=== PATIENT | female | born 1950 | race African-American/Black ===

== ENCOUNTER 2017-07-13 13:43 | Inpatient (IN) | payer MEDICARE, OTHER ==
[~2017-07-13] VITALS: Ht 170.2 cm; Wt 160.1 kg
--- NOTE | 2017-07-13 15:30 | History and Physical ---
History of Present Illness General Date patient seen: Jul 13, 2017 Time patient seen: 15:30 Reason for Hospitalization: sacral decubitus ulcer Present Illness HPI 66 y/o female with pmh of DM2 (on insulin) c/b neuropathy, HTN, GERD, HLD who presents with worsening sacral decubitus ulcer. Pt states sacral decubitus ulcer has been presents for the past few months. Reports increased pain/swelling /warmth in area. Denies discharge/drainage. Denies f/c, n/v, d/c, chest pain, SOB. Pt is incontinent of urine and wears a diaper. Pt states she is non- ambulatory for the past few years. She gets around in wheelchair sometimes. Allergies: Coded Allergies: No Known Allergies (Unverified , 07/13/17) Medication History Scheduled Ascorbic Acid* (Vitamin C*), 500 MG ORAL DAILY, (Reported) Aspirin* (Aspirin*), 81 MG ORAL DAILY, (Reported) Atorvastatin Calcium* (Lipitor*), 10 MG ORAL BEDTIME, (Reported) Baclofen* (Baclofen*), 10 MG ORAL THREE TIMES A DAY, (Reported) Benazepril Hcl* (Benazepril Hcl*), 5 MG ORAL DAILY, (Reported) Cranberry Extract (Cranberry Concentrate), 450 MG PO DAILY, (Reported) Docusate Sodium* (Docusate Sodium*), 100 MG ORAL TWICE A DAY, (Reported) Furosemide* (Lasix*), 40 MG ORAL DAILY, (Reported) Gabapentin* (Gabapentin*), 600 MG ORAL THREE TIMES A DAY, (Reported) Glipizide* (Glipizide*), 10 MG ORAL BIDAC, (Reported) Melatonin (Melatonin), 1 MG PO QHS, (Reported) Melatonin (Melatonin), 5 MG PO QHS, (Reported) Metformin Hcl* (Metformin Hcl*), 1,000 MG ORAL BID, (Reported) Metoprolol Tartrate* (Metoprolol Tartrate*), 25 MG ORAL DAILY, (Reported) Nph, Human Insulin Isophane (Humulin N), 15 UNITS SUBQ QHS, (Reported) Omeprazole (Omeprazole), 40 MG ORAL DAILY, (Reported) Sennosides (Senna), 17.2 MG PO QHS, (Reported) Scheduled PRN Hydrocodone Bit/Acetaminophen 7.5-325* ([place] 7.5-325*), 1 TAB ORAL Q8HR PRN for For Pain, (Reported) Ibuprofen* (Motrin*), 600 MG ORAL Q6H PRN for For Pain, (Reported) Patient History History Provided By: Patient, Medical Record, PMD Healthcare decision maker N Resuscitation status Advanced Directive on File Past Medical/Surgical History Past Medical/Surgical History: (1) DM2 (diabetes mellitus, type 2) (2) HTN (hypertension) (3) HLD (hyperlipidemia) (4) Diabetic neuropathy (5) GERD (gastroesophageal reflux disease) Family History Family History: Patient reports no known family medical history. Social History Social History: (1) lives at [facility] Review of Systems Constitutional: Reports: weakness Eye: Reports: no symptoms ENT: Reports: no symptoms Respiratory: Reports: no symptoms Cardiovascular: Reports: no symptoms Gastrointestinal: Reports: no symptoms Genitourinary: Reports: incontinence Musculoskeletal: Reports: no symptoms Skin: Reports: lesions Psychiatric: Reports: no symptoms Neurological: Reports: no symptoms Endocrine: Reports: no symptoms Hematologic/Lymphatic: Reports: no symptoms All Other Systems: negative except mentioned in HPI Physical Exam Physical Exam Narrative General: alert, cooperative, no distress, appears stated age Head: normocephalic, without obvious abnormality, atraumatic Eyes: conjunctivae/corneas clear. PERRL, EOM's intact Throat: lips, mucosa, and tongue normal. MMM Neck: supple, symmetrical, trachea midline, and no JVD Lungs: clear to auscultation bilaterally Heart: regular rate and rhythm, S1, S2 normal, no murmur, click, rub or gallop Abdomen: soft, non-tender, non-distended, bowel sounds normal; no masses or organomegaly Extremities: extremities normal, atraumatic, no cyanosis or edema Pulses: 2+ and symmetric Skin: skin color, texture, turgor normal; +sacral decubitus ulcer, no active drainage noted Neurologic: grossly normal, no focal deficits Assessment/Plan Problem List: (1) Sacral decubitus ulcer ICD Codes: L89.159 - Pressure ulcer of sacral region, unspecified stage SNOMED: 779817922 (2) DM2 (diabetes mellitus, type 2) ICD Codes: E11.9 - Type 2 diabetes mellitus without complications SNOMED: 67908380 Qualifiers: (3) Diabetic neuropathy ICD Codes: E11.40 - Type 2 diabetes mellitus with diabetic neuropathy, unspecified SNOMED: 04396441, 579847231, 389082065 (4) HTN (hypertension) ICD Codes: I10 - Essential (primary) hypertension SNOMED: 06958782 (5) HLD (hyperlipidemia) ICD Codes: E78.5 - Hyperlipidemia, unspecified SNOMED: 44021815 (6) GERD (gastroesophageal reflux disease) ICD Codes: K21.9 - Gastro-esophageal reflux disease without esophagitis SNOMED: 103225586 Status: stable Assessment/Plan Admit inpt Wound care consulted Will consult ID to determine if abx needed Cont local wound care Consider further imaging to sacral area Cont home meds: MTF, MTP, benazapril, PPI, ASA BRIAN PT/OT Pain mgmt, bowel regimen Supportive care Torch Brazer consult Diabetic diet DVT Prophylaxis: SCD, HSQ Code Status: Full Hospital Classification Declaration: Based on this initial evaluation, and depending on the patient's clinical course, I anticipate that this patient will require hospitalization for 2-3 days for sacral decub ulcer and close respiratory/hemodynamic monitoring. Disposition: Once the patient is stable to leave the hospital, I anticipate the patient will likely be discharged to the following environment: home with HH vs SNF I spent 70 minutes on this patient's case, and 38 minutes were dedicated to counseling and/or care coordination. Discussed with patient/family, nursing staff, SW/CM regarding clinical status, treatment course, and disposition planning. Time of note may not reflect time of encounter. Claudy Tristan M.D. Jul 13, 2017 15:30
[2017-07-13 16:11] VITALS: BP 120/65
[2017-07-13] MEDS ORDERED: Miralax 17gm pkt ORAL PRN (16:30)
[2017-07-13 16:42] LABS: BASOPHILS % (AUTO) 1.4 % (0.0-2.0); EOSINOPHILS % (AUTO) 3.2 % (0.0-3.0); LYMPHOCYTES % (AUTO) 27.9 % (20.0-45.0); MEAN CORPUSCULAR HEMOGLOBIN 28.9 PG (27.0-31.0); MEAN CORPUSCULAR HGB CONC 31.7 G/DL (32.0-36.0); MEAN CORPUSCULAR VOLUME 91 FL (80-99); MEAN PLATELET VOLUME 6.9 FL (6.5-10.1); MONOCYTES % (AUTO) 7.4 % (1.0-10.0); NEUTROPHILS % (AUTO) 60.1 % (45.0-75.0); PLATELET COUNT 367 K/UL (150-450); RED BLOOD COUNT 4.67 M/UL (4.20-5.40); RED CELL DISTRIBUTION WIDTH 13.8 % (11.6-14.8); WHITE BLOOD COUNT 7.9 K/UL (4.8-10.8)
[2017-07-13] MEDS ORDERED: Norco 5mg/325mg tab ORAL PRN (16:45)
[2017-07-13 17:10] LABS: ALANINE AMINOTRANSFERASE 16 U/L (12-78); ALBUMIN/GLOBULIN RATIO 0.5 (1.0-2.7); ANION GAP 7 mmol/L (5-15); ASPARTATE AMINO TRANSFERASE 10 U/L (15-37); CALCIUM 9.2 MG/DL (8.5-10.1); CARBON DIOXIDE 31 MMOL/L (21-32); CHLORIDE 104 MMOL/L (98-107); CREATININE 1.1 MG/DL (0.55-1.30); GLOMERULAR FILTRATION RATE > 60 mL/min (>60); MAGNESIUM 1.7 MG/DL (1.8-2.4); POTASSIUM 3.8 MMOL/L (3.5-5.1); SODIUM 142 MMOL/L (136-145); THYROID STIMULATING HORMONE 2.232 uiU/mL (0.358-3.740); TOTAL PROTEIN 8.5 G/DL (6.4-8.2)
[2017-07-13] MEDS: metFORMIN 500mg tab ORAL SCH (17:57)
[2017-07-13] MEDS: Norco 10mg/325mg tab ORAL PRN ×2 (17:57→23:03)
[2017-07-13] MEDS: Docusate 100mg cap ORAL SCH (18:00)
[2017-07-13 18:03] LABS: APPEARANCE,URINE TURBID; KETONES,URINE NEGATIVE (NEGATIVE); LEUKOCYTE ESTERASE ,URINE 1+ (NEGATIVE); NITRITE,URINE POSITIVE (NEGATIVE); PH,URINE 6 (4.5-8.0); PROTEIN,URINE NEGATIVE (NEGATIVE); UROBILINOGEN,URINE 1 MG/DL (0.0-1.0)
[2017-07-13 18:19] LABS: BACTERIA,URINE MANY /HPF; SQUAMOUS EPITHELIAL CELL,UR FEW /LPF (NONE/OCC); WBC,URINE 0-2 /HPF (0 - 2)
--- NOTE | 2017-07-13 18:23 | Infectious Diseases Prog Note ---
Assessment/Plan Assessment/Plan Full consult dictated: A) 1) sacral wound infection 2) morbid obesity, hyperlipidemia, neuropathy, dm, htn, schizoaffective dx, insomnia, major depression, gerd 3) allergies - negative 4) sh-negative, fh-nc, mar noted, notes and records noted 5) d/w RN P) 1) vancomycin and zosyn 2) check wound culture 3) check labs 4) wound care per protocol 5) orders entered and noted 6) thank you Subjective Allergies: Coded Allergies: No Known Allergies (Unverified , 07/13/17) Objective Vital Signs Last 24 Hour Vital Signs Date Time Temp Pulse Resp B/P (MAP) Pulse Ox O2 Delivery O2 Flow Rate FiO2 07/13/17 16:11 98.0 69 20 120/65 94 Room Air Height (Feet): 5 Height (Inches): 7.00 Weight (Pounds): 353 Laboratory Tests Test 07/13/17 16:00 07/13/17 16:20 Urine Color Yellow Urine Appearance Turbid Urine pH 6 (4.5-8.0) Urine Specific [place] 1.015 (1.005-1.035) Urine Protein Negative (NEGATIVE) Urine Glucose (UA) Negative (NEGATIVE) Urine Ketones Negative (NEGATIVE) Urine Occult Blood 2+ (NEGATIVE) H Urine Nitrite Positive (NEGATIVE) H Urine Bilirubin Negative (NEGATIVE) Urine Urobilinogen 1 MG/DL (0.0-1.0) H Urine Leukocyte Esterase 1+ (NEGATIVE) H Urine RBC Pending Urine WBC Pending Urine Squamous Epithelial Cells Pending Urine Bacteria Pending White Blood Count 7.9 K/UL (4.8-10.8) Red Blood Count 4.67 M/UL (4.20-5.40) Hemoglobin 13.5 G/DL (12.0-16.0) Hematocrit 42.5 % (37.0-47.0) Mean Corpuscular Volume 91 FL (80-99) Mean Corpuscular Hemoglobin 28.9 PG (27.0-31.0) Mean Corpuscular Hemoglobin Concent 31.7 G/DL (32.0-36.0) L Red Cell Distribution Width 13.8 % (11.6-14.8) Platelet Count 367 K/UL (150-450) Mean Platelet Volume 6.9 FL (6.5-10.1) Neutrophils (%) (Auto) 60.1 % (45.0-75.0) Lymphocytes (%) (Auto) 27.9 % (20.0-45.0) Monocytes (%) (Auto) 7.4 % (1.0-10.0) Eosinophils (%) (Auto) 3.2 % (0.0-3.0) H Basophils (%) (Auto) 1.4 % (0.0-2.0) Sodium Level 142 MMOL/L (136-145) Potassium Level 3.8 MMOL/L (3.5-5.1) Chloride Level 104 MMOL/L (98-107) Carbon Dioxide Level 31 MMOL/L (21-32) Anion Gap 7 mmol/L (5-15) Blood Urea Nitrogen 12 mg/dL (7-18) Creatinine 1.1 MG/DL (0.55-1.30) Estimat Glomerular Filtration Rate > 60 mL/min (>60) Glucose Level 105 MG/DL (74-106) Hemoglobin A1c 6.8 % (4.3-6.0) H Calcium Level 9.2 MG/DL (8.5-10.1) Magnesium Level 1.7 MG/DL (1.8-2.4) L Total Bilirubin 0.2 MG/DL (0.2-1.0) Aspartate Amino Transf (AST/SGOT) 10 U/L (15-37) L Alanine Aminotransferase (ALT/SGPT) 16 U/L (12-78) Alkaline Phosphatase 98 U/L (46-116) Pro-B-Type Natriuretic Peptide 67 pg/mL (0-125) Total Protein 8.5 G/DL (6.4-8.2) H Albumin 3.0 G/DL (3.4-5.0) L Globulin 5.5 g/dL Albumin/Globulin Ratio 0.5 (1.0-2.7) L Thyroid Stimulating Hormone (TSH) 2.232 uiU/mL (0.358-3.740) Current Medications Medications (Trade) Dose Ordered Sig/Gregory Route PRN Reason Start Time Stop Time Status Last Admin Dose Admin Acetaminophen (Tylenol) 650 mg Q4H PRN ORAL Mild Pain/Temp > 100.5 07/13/17 16:30 08/12/17 16:29 Acetaminophen/ Hydrocodone Bitart ([place] 10/325) 1 ea Q4H PRN ORAL For severe Pain 07/13/17 16:45 07/20/17 16:44 07/13/17 17:57 Acetaminophen/ Hydrocodone Bitart (Sims 5/325) 1 tab Q4H PRN ORAL Moderate Pain (Pain Scale 4-6) 07/13/17 16:45 07/20/17 16:44 Aspirin (Ecotrin) 81 mg DAILY ORAL 07/14/17 09:00 08/13/17 08:59 Atorvastatin Calcium (Lipitor) 10 mg BEDTIME ORAL 07/13/17 21:00 08/12/17 20:59 Baclofen (Lioresal) 10 mg TIDPRN PRN ORAL muscle spasms 07/13/17 17:00 08/12/17 16:59 Benazepril HCl (Lotensin) 5 mg DAILY ORAL 07/14/17 09:00 08/13/17 08:59 Dextrose (Dextrose 50%) STAT PRN IV Hypoglycemia 07/13/17 15:45 08/12/17 15:44 Docusate Sodium (Colace) 100 mg TWICE A DAY ORAL 07/13/17 18:00 08/12/17 17:59 Gabapentin (Neurontin) 600 mg THREE TIMES A DAY ORAL 07/13/17 18:00 08/12/17 17:59 07/13/17 17:56 Heparin Sodium (Porcine) (Heparin 5000 units/ml) 5,000 units EVERY 12 HOURS SUBQ 07/13/17 21:00 08/12/17 20:59 Insulin Aspart (NovoLOG) BEFORE MEALS AND HS SUBQ 07/13/17 21:00 08/12/17 20:59 Metformin HCl (Glucophage) 1,000 mg BID@0630,1830 ORAL 07/13/17 18:30 08/12/17 18:29 07/13/17 17:57 Metoprolol Tartrate (Lopressor) 12.5 mg Q12HR ORAL 07/13/17 21:00 08/12/17 20:59 Pantoprazole (Protonix) 40 mg DAILY ORAL 07/14/17 09:00 08/13/17 08:59 Piperacillin Sod/ Tazobactam Sod 3.375 gm/Dextrose 100 ml @ 25 mls/hr EVERY 8 HOURS IVPB 07/13/17 22:00 07/18/17 21:59 UNV Polyethylene Glycol (Miralax) 17 gm DAILYPRN PRN ORAL Constipation 07/13/17 16:30 08/12/17 16:29 Vancomycin HCl (Vanco rx to dose) 1 ea DAILY PRN MISC Per rx protocol 07/13/17 18:15 08/12/17 18:14 UNV Zolpidem Tartrate (Ambien) 5 mg HSPRN PRN ORAL Insomnia 07/13/17 16:45 07/20/17 16:44 FELIX COLVIN Jul 13, 2017 18:23
[2017-07-13] MEDS ORDERED: Sennosides 8.6mg ORAL PRN (18:45)
[2017-07-13] MEDS ORDERED: HUMULIN N100 UNIT/1 SUBQ (18:59)
[2017-07-13] MEDS ORDERED: SENNA8.6 M2 PO (18:59)
[2017-07-13] MEDS ORDERED: METFORMIN HCL1000 M1 ORAL (18:59)
[2017-07-13] MEDS ORDERED: GLIPIZIDE5 MG ORAL (18:59)
[2017-07-13] MEDS ORDERED: OMEPRAZOLE40 M1 ORAL (18:59)
[2017-07-13] MEDS ORDERED: MELATONIN5 M6 PO (18:59)
[2017-07-13] MEDS ORDERED: CRANBERRY CONC500 MG PO (18:59)
[2017-07-13] MEDS ORDERED: MELATONIN1 M2 PO (18:59)
[2017-07-13] MEDS ORDERED: ASPIRIN81 MG ORAL (18:59)
[2017-07-13] MEDS ORDERED: METOPROLOL TART25 MG ORAL (18:59)
[2017-07-13] MEDS ORDERED: BACLOFEN10 MG ORAL (18:59)
[2017-07-13] MEDS ORDERED: IBUPROFEN600 MG ORAL (18:59)
[2017-07-13] MEDS ORDERED: VITAMIN C500 M1 ORAL (18:59)
[2017-07-13] MEDS ORDERED: DOCUSATE SODIU100 MG ORAL (18:59)
[2017-07-13] MEDS ORDERED: GABAPENTIN600 MG ORAL (18:59)
[2017-07-13] MEDS ORDERED: ATORVASTATIN CA10 MG ORAL (18:59)
[2017-07-13] MEDS ORDERED: BENAZEPRIL HCL10 MG ORAL (18:59)
[2017-07-13] MEDS ORDERED: NORCO 7.5-3251 EACH ORAL (18:59)
[2017-07-13] MEDS ORDERED: FUROSEMIDE40 MG ORAL (18:59)
[2017-07-13 20:00] VITALS: BP 115/61
[2017-07-13] MEDS: Piperacillin/Tazobactam 3.375 GM in D5W 55 ML IVPB SCH (20:09)
[2017-07-13] MEDS ORDERED: Furosemide 40mg tab ORAL SCH (21:00)
[2017-07-13] MEDS: Metoprolol Tartrate 12.5mg TAB ORAL SCH (21:10)
[2017-07-13] MEDS: Heparin 5000 units/ml inj SUBQ SCH (21:11)
[2017-07-13] MEDS: NovoLOG Insulin Flexpen SUBQ SCH (21:12)
[2017-07-14] VITALS (7 sets, daily range): BP systolic 112–130; BP diastolic 50–69
[2017-07-14] MEDS: Zolpidem 5mg tab ORAL PRN ×2 (00:24→20:34)
[2017-07-14] MEDS: Vancomycin 1250mg/D5W 250ml IVPB SCH ×3 (00:25→20:42)
--- NOTE | 2017-07-14 03:45 | Consultation ---
DATE OF CONSULTATION: 07/13/2017 INFECTIOUS DISEASES CONSULTATION REFERRING PHYSICIAN: Hayden Tierney M.D. I was asked by Dr. Loco to see this patient. REASON FOR CONSULTATION: Sacral wound infection. The patient's chief complaint coming into the hospital is sacral wound and ulcer infection. HISTORY OF PRESENT ILLNESS: This is a very pleasant 66-year-old female, who has history of morbid obesity and generalized weakness. The patient presents to [facility] with worsening sacral wound and likely has sacral wound infection. An Infectious Diseases consultation is requested. The patient is started on vancomycin and Zosyn. Wound cultures have been ordered. Case was communicated with Dr. Loco, who is associated with Dr. Tierney. Laboratories were noted. MAR was noted. Orders were noted. Notes were reviewed. Case was discussed with RN. PAST MEDICAL HISTORY: She has a past medical history of morbid obesity with generalized weakness, hyperlipidemia, history of polyneuropathy, diabetes, hypertension, schizoaffective disorder, disease, history of insomnia, major depression, and GERD. MEDICATIONS: Upon reviewing the MAR, she is on following medications: On aspirin, pantoprazole, and benazepril. She has been on atorvastatin in the past. She is on insulin. She is on metoprolol, metformin, vancomycin, docusate, gabapentin, baclofen, zolpidem, and hydrocodone. She is on polyethylene, acetaminophen, and dextrose. ALLERGIES: No allergies. SOCIAL HISTORY: Negative for smoking, alcohol, or drug abuse. FAMILY HISTORY: Noncontributory. Negative for exposure to tuberculosis or cancer. REVIEW OF SYSTEMS: CONSTITUTIONAL: The patient has generalized weakness and fatigue. She is obese and cannot really move that well. She has no fever, chills, night sweats, or weight loss. HEAD AND NECK: No head pain or neck pain. No thrush or dysphagia. CARDIAC: No chest pain or palpitations. GASTROINTESTINAL: No nausea, vomiting, or diarrhea. GENITOURINARY: No Devlin or central line. No dysuria or frequency. PULMONARY: No congestion or short of breath. No hemoptysis or secretions. SKIN: No rash or itching. EXTREMITIES: No extremity pain. NEUROLOGIC: No seizures. PHYSICAL EXAMINATION: VITAL SIGNS: Temperature 98.0 degrees, pulse 69, respiratory rate 20, blood pressure 120/65, and saturation 94% on room air. GENERAL: Alert and responsive, no acute distress. HEAD AND NECK: Oral exam, no thrush. Eye exam, no icterus. Normocephalic. No facial droop. No neck pain. No neck stiffness. NECK: Supple. HEART: Regular. No gallop or murmur. LUNGS: Clear bilaterally. No rhonchi or rales. ABDOMEN: Soft. Positive bowel sounds. Nontender. SKIN: No rash or dermatitis. She has a sacral wound and has some slough in it and runs deep with central drainage. MUSCULOSKELETAL: No effusion. EXTREMITIES: Legs are without cellulitis. PERIPHERAL VASCULAR: No cyanosis or gangrene. RECTAL: Deferred. GENITOURINARY: No Devlin. LINES: Line sites without phlebitis. BACK: No CVA tenderness. NEUROLOGIC: Alert and responsive. Nonfocal with generalized weakness. No focal weakness. She is able to move extremities. LABORATORY AND DIAGNOSTIC DATA: Creatinine is 1.1. LFTs were noted. White count 7.91 and hemoglobin 13.5. Wound culture is pending. UA has positive nitrite. ASSESSMENT AND PLAN: 1. The patient has a sacral wound infection, ulcer infection with some slough noted. Rule out underlying osteomyelitis. We will check x-ray to rule out osteo. The patient also has possible urinary tract infection with 1+ leukocyte esterase and positive nitrite on urinalysis. Continue vancomycin and Zosyn. Check wound culture. Check urine culture. Continue skin care protocol. 2. Obesity and generalized weakness. 3. Hyperlipidemia. 4. Polyneuropathy. 5. Diabetes. 6. Hypertension. 7. Blood sugar and blood pressure control per primary. 8. Schizoaffective disorder. 9. Insomnia. 10. Major depression. 11. Gastroesophageal reflux disease. 12. Allergies are negative. 13. Family history is noncontributory. 14. Social history is negative. 15. MAR was noted. 16. Case discussed with RN. 17. Continue treatment per primary consultants. 18. Dr. Russo. 19. Case discussed with the patient and RN. 20. Skin care protocol. Thank you. I will follow. Gideon Garcia M.D. DR: JOSE JOB#: [id number] CC:
[2017-07-14] MEDS: Piperacillin/Tazobactam 3.375 GM in D5W 55 ML IVPB SCH ×3 (05:33→22:00)
[2017-07-14] MEDS: metFORMIN 500mg tab ORAL SCH ×2 (06:03→17:33)
[2017-07-14] MEDS: NovoLOG Insulin Flexpen SUBQ SCH ×4 (06:05→20:25)
[2017-07-14] MEDS ORDERED: GlipiZIDE 10mg tab ORAL SCH (06:30)
[2017-07-14 06:51] LABS: ANION GAP 5 mmol/L (5-15); CARBON DIOXIDE 31 MMOL/L (21-32); CHLORIDE 102 MMOL/L (98-107); CREATININE 0.9 MG/DL (0.55-1.30); GLOMERULAR FILTRATION RATE > 60 mL/min (>60); MAGNESIUM 1.5 MG/DL (1.8-2.4); POTASSIUM 3.9 MMOL/L (3.5-5.1); SODIUM 138 MMOL/L (136-145)
[2017-07-14 06:56] LABS: BASOPHILS % (AUTO) 2.3 % (0.0-2.0); LYMPHOCYTES % (AUTO) 27.8 % (20.0-45.0); MEAN CORPUSCULAR HGB CONC 31.6 G/DL (32.0-36.0); MEAN CORPUSCULAR VOLUME 92 FL (80-99); MEAN PLATELET VOLUME 6.7 FL (6.5-10.1); PLATELET COUNT 333 K/UL (150-450); RED BLOOD COUNT 4.68 M/UL (4.20-5.40); RED CELL DISTRIBUTION WIDTH 13.7 % (11.6-14.8); WHITE BLOOD COUNT 7.4 K/UL (4.8-10.8)
[2017-07-14] MEDS: Aspirin EC 81mg tab ORAL SCH (08:22)
[2017-07-14] MEDS: Norco 10mg/325mg tab ORAL PRN ×3 (08:25→16:39)
[2017-07-14] MEDS: Metoprolol Tartrate 12.5mg TAB ORAL SCH ×2 (08:26→20:26)
[2017-07-14] MEDS: Heparin 5000 units/ml inj SUBQ SCH ×2 (08:26→20:23)
[2017-07-14] MEDS: Benazepril 10mg tab ORAL SCH (08:28)
[2017-07-14] MEDS: Docusate 100mg cap ORAL SCH ×2 (08:29→17:33)
[2017-07-14] MEDS ORDERED: Metoprolol 25mg tab ORAL SCH (09:00)
[2017-07-14] MEDS ORDERED: Aspirin Baby 81mg ORAL SCH (09:00)
[2017-07-14] MEDS ORDERED: Ascorbic Acid 500mg tab ORAL SCH (09:00)
[2017-07-14] MEDS ORDERED: Multivitamins W/Minerals 15 ML UDC GT SCH (09:00)
[2017-07-14] MEDS ORDERED: metFORMIN 500mg tab ORAL SCH (09:00)
[2017-07-14] MEDS ORDERED: Docusate 100mg cap ORAL SCH (09:00)
--- NOTE | 2017-07-14 10:20 | Wound Care Consultation ---
Wound Assessment Wound Assessment #1: Wound Number: 1 Wound Present on Admission: Yes New Wound: No Status Change of Wound: No Wound Location Body Site Modif: mid Wound Location Body Site: other - Sacrococcygeal Wound Type: pressure ulcer Caro Test: Does not Caro Pressure Ulcer Stage: IV Wound Thickness: Full Thickness Wound Length: 2.0 Wound Width: 1.0 Wound Depth: 0.4 Percent of Wound [place]/Red: 100 Wound Drainage Description: Serosanguineous Wound Drainage Amount: Scant Wound Drainage Odor: None/Absent Tissue Surrounding Wound: Erythemic Wound General Appearance: Reddened, Draining, Bone Palpable, Muscle Visible Wound Assessment #2: Wound Number: 2 Wound Present on Admission: Yes New Wound: No Status Change of Wound: No Wound Location Body Site Modif: right, plantar Wound Location Body Site: metatarsal head - 4th Wound Type: pressure ulcer Caro Test: Does not Caro Pressure Ulcer Stage: Deep Tissue Injury - SDTI Wound Thickness: Full Thickness Wound Length: 1.0 Wound Width: 1.0 Wound Depth: utd Percent of Wound Purple/Maroon: 100 Wound Drainage Amount: None Wound Drainage Odor: None/Absent Tissue Surrounding Wound: Intact Wound General Appearance: Asymptomatic Wound Assessment #3: Wound Number: 3 Wound Present on Admission: Yes New Wound: No Status Change of Wound: No Wound Location Body Site Modif: left Wound Location Body Site: abdominal fold Wound Type: erosion Caro Test: Does not Caro Wound Thickness: Partial Thickness Wound Length: 0.3 Wound Width: 0.8 Wound Depth: less than 0.1 Percent of Wound [place]/Red: 100 Wound Drainage Description: Serosanguineous Wound Drainage Amount: Scant Wound Drainage Odor: None/Absent Tissue Surrounding Wound: Erythemic Wound General Appearance: Reddened, Draining Wound Comment #1 Sacrococcygeal stage IV pressure ulcer #2 Right plantar 4th metatarsal head SDTI pressure ulcer #3 Right ischial tuberosity full thickness scar tissue #4 Left side of abdominal fold erosion with partial thickness skin loss Recommendation -Local wound care per protocol -Keep clean and dry -Turn and reposition -Optimize nutrition -Offload both heels -Heel protector on both heels -Low air loss mattress -Assess and f/u accordingly for any changes MARSHALL BERRY RN Jul 14, 2017 10:20
--- NOTE | 2017-07-14 10:39 | Diagnostic Imaging Report ---
Indication: Pain Technique: Multiple views of the sacrum Comparison: None Findings: Note that stool in the rectum partially obscures the sacrum on the frontal views. No definite acute fractures or osseous erosions. The sacroiliac joint spaces are preserved. Impression: No definite acute bony trauma. No definite findings to suggest acute osteomyelitis. Note, however, limited sensitivity of plain radiographs for such. Consider MRI or bone scan for better characterization if there is high clinical suspicion
--- NOTE | 2017-07-14 12:28 | General Progress Note ---
Assessment/Plan Problem List: (1) Sacrococcygeal stage IV pressure ulcer Assessment & Plan: with concern for infection (2) DM2 (diabetes mellitus, type 2) ICD Codes: E11.9 - Type 2 diabetes mellitus without complications SNOMED: 17157542 Qualifiers: (3) Diabetic neuropathy ICD Codes: E11.40 - Type 2 diabetes mellitus with diabetic neuropathy, unspecified SNOMED: 07285734, 754410020, 813366326 (4) HTN (hypertension) ICD Codes: I10 - Essential (primary) hypertension SNOMED: 14336772 (5) HLD (hyperlipidemia) ICD Codes: E78.5 - Hyperlipidemia, unspecified SNOMED: 61478994 (6) GERD (gastroesophageal reflux disease) ICD Codes: K21.9 - Gastro-esophageal reflux disease without esophagitis SNOMED: 772238122 (7) Right plantar 4th metatarsal head SDTI pressure ulcer (8) Right ischial tuberosity full thickness scar tissue (9) Left side of abdominal fold erosion with partial thickness skin loss Status: stable Status Narrative Assessment/Plan Wound care consulted, appreciate rec's ID consulted, appreciate rec's Cont vanco and zosyn per ID F/u wound culture X-ray coccyx reviewed Cont local wound care Cont home meds: MTF, MTP, benazapril, PPI, ASA BRIAN PT/OT Pain mgmt, bowel regimen Supportive care Security Alarm Installer consult Diabetic diet DVT Prophylaxis: SCD, HSQ Code Status: Full Hospital Classification Declaration: Based on this initial evaluation, and depending on the patient's clinical course, I anticipate that this patient will require hospitalization for 1-2 days for sacral decub ulcer and close respiratory/hemodynamic monitoring. Disposition: Once the patient is stable to leave the hospital, I anticipate the patient will likely be discharged to the following environment: home with HH vs SNF Discussed with patient/family, nursing staff, SW/CM, ID regarding clinical status, treatment course, and disposition planning. Time of note may not reflect time of encounter. Subjective Date patient seen: Jul 14, 2017 Time patient seen: 12:27 ROS Limited/Unobtainable: No Constitutional: Reports: no symptoms HEENT: Reports: no symptoms Cardiovascular: Reports: no symptoms Respiratory: Reports: no symptoms Gastrointestinal/Abdominal: Reports: no symptoms Neurologic/Psychiatric: Reports: no symptoms Endocrine: Reports: no symptoms Hematologic/Lymphatic: Reports: no symptoms Allergies: Coded Allergies: No Known Allergies (Unverified , 07/13/17) All Systems: reviewed and negative except above Subjective No acute o/n events Seen by wound care, pt w/ stage 4 sacral ulcer Seen by ID and started on vanco and zosyn X-ray coccyx showed no e/o osteomyelitis Pt doing well. Denies f/c, n/v, d/c, chest pain, SOB Objective Last 24 Hour Vital Signs Date Time Temp Pulse Resp B/P (MAP) Pulse Ox O2 Delivery O2 Flow Rate FiO2 07/14/17 08:28 117/67 07/14/17 08:26 88 117/67 07/14/17 08:00 97.3 88 20 117/67 94 07/14/17 08:00 97.3 88 20 117/67 94 Room Air 07/14/17 04:00 97.2 80 18 130/69 93 07/14/17 00:00 98.2 85 20 112/50 92 07/13/17 21:10 81 115/61 07/13/17 20:00 97.7 81 21 115/61 93 07/13/17 16:11 98.0 69 20 120/65 94 Room Air Intake and Output 07/14/17 07/15/17 19:00 07:00 Intake Total 263.750 ml Balance 263.750 ml IV Total 263.750 ml Laboratory Tests 07/13/17 16:00: Urine Color Yellow, Urine Appearance Turbid, Urine pH 6, Urine Specific Kiefer 1.015, Urine Protein Negative, Urine Glucose (UA) Negative, Urine Ketones Negative, Urine Occult Blood 2+H, Urine Nitrite PositiveH, Urine Bilirubin Negative, Urine Urobilinogen 1H, Urine Leukocyte Esterase 1+H, Urine RBC 5-10H, Urine WBC 0-2, Urine Squamous Epithelial Cells Few, Urine Bacteria ManyH 07/13/17 16:20: White Blood Count 7.9, Red Blood Count 4.67, Hemoglobin 13.5, Hematocrit 42.5, Mean Corpuscular Volume 91, Mean Corpuscular Hemoglobin 28.9, Mean Corpuscular Hemoglobin Concent 31.7L, Red Cell Distribution Width 13.8, Platelet Count 367, Mean Platelet Volume 6.9, Neutrophils (%) (Auto) 60.1, Lymphocytes (%) (Auto) 27.9, Monocytes (%) (Auto) 7.4, Eosinophils (%) (Auto) 3.2H, Basophils (%) (Auto ) 1.4, Sodium Level 142, Potassium Level 3.8, Chloride Level 104, Carbon Dioxide Level 31, Anion Gap 7, Blood Urea Nitrogen 12, Creatinine 1.1, Estimat Glomerular Filtration Rate > 60, Glucose Level 105, Hemoglobin A1c 6.8H, Calcium Level 9.2, Magnesium Level 1.7L, Total Bilirubin 0.2, Aspartate Amino Transf (AST/SGOT) 10L, Alanine Aminotransferase (ALT/SGPT) 16, Alkaline Phosphatase 98, Pro-B-Type Natriuretic Peptide 67, Total Protein 8.5H, Albumin 3.0L, Globulin 5.5, Albumin/Globulin Ratio 0.5L, Thyroid Stimulating Hormone ( TSH) 2.232 07/14/17 05:20: White Blood Count 7.4, Red Blood Count 4.68, Hemoglobin 13.6, Hematocrit 43.0, Mean Corpuscular Volume 92, Mean Corpuscular Hemoglobin 29.0, Mean Corpuscular Hemoglobin Concent 31.6L, Red Cell Distribution Width 13.7, Platelet Count 333, Mean Platelet Volume 6.7, Neutrophils (%) (Auto) 60.0, Lymphocytes (%) (Auto) 27.8, Monocytes (%) (Auto) 7.0, Eosinophils (%) (Auto) 3.0, Basophils (%) (Auto ) 2.3H, Sodium Level 138, Potassium Level 3.9, Chloride Level 102, Carbon Dioxide Level 31, Anion Gap 5, Blood Urea Nitrogen 14, Creatinine 0.9, Estimat Glomerular Filtration Rate > 60, Glucose Level 116H, Calcium Level 9.0, Magnesium Level 1.5L Height (Feet): 5 Height (Inches): 7.00 Weight (Pounds): 353 Objective General: alert, cooperative, no distress, appears stated age Head: normocephalic, without obvious abnormality, atraumatic Eyes: conjunctivae/corneas clear. PERRL, EOM's intact Throat: lips, mucosa, and tongue normal. MMM Neck: supple, symmetrical, trachea midline, and no JVD Lungs: clear to auscultation bilaterally Heart: regular rate and rhythm, S1, S2 normal, no murmur, click, rub or gallop Abdomen: soft, non-tender, non-distended, bowel sounds normal; no masses or organomegaly Extremities: extremities normal, atraumatic, no cyanosis or edema Pulses: 2+ and symmetric Skin: skin color, texture, turgor normal; +stage 4 sacral ulcer Neurologic: grossly normal, no focal deficits Claudy Tristan M.D. Jul 14, 2017 12:28
[2017-07-14] MEDS ORDERED: Tubing IV Secondary IV ONE (16:03)
[2017-07-14] MEDS ORDERED: NS 500ML ONE (16:03)
--- NOTE | 2017-07-14 21:03 | Infectious Diseases Prog Note ---
Assessment/Plan Assessment/Plan F A) 1) sacral wound infection 2) morbid obesity, hyperlipidemia, neuropathy, dm, htn, schizoaffective dx, insomnia, major depression, gerd 3) allergies - negative 4) sh-negative, fh-nc, mar noted, notes and records noted 5) d/w RN P) 1) vancomycin and zosyn 2) check wound culture 3) check labs 4) wound care per protocol 5) orders entered and noted 6) thank you Subjective Constitutional: Denies: fever HEENT: Denies: congestion Respiratory: Denies: shortness of breath Cardiovascular: Denies: chest pain Genitourinary: Denies: vaginal bleed/discharge Psychiatric: Denies: depression Allergies: Coded Allergies: No Known Allergies (Unverified , 07/13/17) Objective Vital Signs Last 24 Hour Vital Signs Date Time Temp Pulse Resp B/P (MAP) Pulse Ox O2 Delivery O2 Flow Rate FiO2 07/14/17 20:26 87 117/64 07/14/17 20:00 97.7 87 18 117/64 91 07/14/17 15:19 97.5 91 21 129/65 96 Room Air 07/14/17 12:00 97.5 85 20 122/62 98 07/14/17 08:28 117/67 07/14/17 08:26 88 117/67 07/14/17 08:00 97.3 88 20 117/67 94 07/14/17 08:00 97.3 88 20 117/67 94 Room Air 07/14/17 04:00 97.2 80 18 130/69 93 07/14/17 00:00 98.2 85 20 112/50 92 07/13/17 21:10 81 115/61 Height (Feet): 5 Height (Inches): 7.00 Weight (Pounds): 353 General Appearance: no acute distress HEENT: normocephalic, atraumatic, anicteric, mucous membranes moist Respiratory/Chest: lungs clear, normal breath sounds, no respiratory distress Cardiovascular: normal rate, regular rhythm Abdomen: normal bowel sounds, soft, non tender, non distended Skin: other - wound covered Neurologic/Psychiatric: bellows filler II-XII grossly normal, alert, responsive Microbiology Date/Time Source Procedure Growth Status 07/13/17 16:00 Urine,Clean Catch Urine Culture - Preliminary Resulted 07/13/17 16:00 Sacral Ulcer Gram Stain - Final Resulted 07/13/17 16:00 Sacral Ulcer Wound Culture Pending Resulted Laboratory Tests Test 07/14/17 05:20 White Blood Count 7.4 K/UL (4.8-10.8) Red Blood Count 4.68 M/UL (4.20-5.40) Hemoglobin 13.6 G/DL (12.0-16.0) Hematocrit 43.0 % (37.0-47.0) Mean Corpuscular Volume 92 FL (80-99) Mean Corpuscular Hemoglobin 29.0 PG (27.0-31.0) Mean Corpuscular Hemoglobin Concent 31.6 G/DL (32.0-36.0) L Red Cell Distribution Width 13.7 % (11.6-14.8) Platelet Count 333 K/UL (150-450) Mean Platelet Volume 6.7 FL (6.5-10.1) Neutrophils (%) (Auto) 60.0 % (45.0-75.0) Lymphocytes (%) (Auto) 27.8 % (20.0-45.0) Monocytes (%) (Auto) 7.0 % (1.0-10.0) Eosinophils (%) (Auto) 3.0 % (0.0-3.0) Basophils (%) (Auto) 2.3 % (0.0-2.0) H Sodium Level 138 MMOL/L (136-145) Potassium Level 3.9 MMOL/L (3.5-5.1) Chloride Level 102 MMOL/L (98-107) Carbon Dioxide Level 31 MMOL/L (21-32) Anion Gap 5 mmol/L (5-15) Blood Urea Nitrogen 14 mg/dL (7-18) Creatinine 0.9 MG/DL (0.55-1.30) Estimat Glomerular Filtration Rate > 60 mL/min (>60) Glucose Level 116 MG/DL (74-106) H Calcium Level 9.0 MG/DL (8.5-10.1) Magnesium Level 1.5 MG/DL (1.8-2.4) L Current Medications Medications (Trade) Dose Ordered Sig/Gregory Route PRN Reason Start Time Stop Time Status Last Admin Dose Admin Acetaminophen (Tylenol) 650 mg Q4H PRN ORAL Mild Pain/Temp > 100.5 07/13/17 16:30 08/12/17 16:29 Acetaminophen/ Hydrocodone Bitart ([place] 10/325) 1 ea Q4H PRN ORAL For severe Pain 07/13/17 16:45 07/20/17 16:44 07/14/17 16:39 Acetaminophen/ Hydrocodone Bitart ([place] 5/325) 1 tab Q4H PRN ORAL Moderate Pain (Pain Scale 4-6) 07/13/17 16:45 07/20/17 16:44 Aspirin (Ecotrin) 81 mg DAILY ORAL 07/14/17 09:00 08/13/17 08:59 07/14/17 08:22 Atorvastatin Calcium (Lipitor) 10 mg BEDTIME ORAL 07/13/17 21:00 08/12/17 20:59 07/14/17 20:30 Baclofen (Lioresal) 10 mg TIDPRN PRN ORAL muscle spasms 07/13/17 17:00 08/12/17 16:59 Benazepril HCl (Lotensin) 5 mg DAILY ORAL 07/14/17 09:00 08/13/17 08:59 Dextrose (Dextrose 50%) STAT PRN IV Hypoglycemia 07/13/17 15:45 08/12/17 15:44 Docusate Sodium (Colace) 100 mg TWICE A DAY ORAL 07/13/17 18:00 08/12/17 17:59 Gabapentin (Neurontin) 600 mg THREE TIMES A DAY ORAL 07/13/17 18:00 08/12/17 17:59 07/14/17 17:33 Heparin Sodium (Porcine) (Heparin 5000 units/ml) 5,000 units EVERY 12 HOURS SUBQ 07/13/17 21:00 08/12/17 20:59 07/14/17 20:23 Insulin Aspart (NovoLOG) BEFORE MEALS AND HS SUBQ 07/13/17 21:00 08/12/17 20:59 07/14/17 20:25 Metformin HCl (Glucophage) 1,000 mg BID@0630,1830 ORAL 07/13/17 18:30 08/12/17 18:29 07/14/17 17:33 Metoprolol Tartrate (Lopressor) 12.5 mg Q12HR ORAL 07/13/17 21:00 08/12/17 20:59 07/14/17 20:26 Pantoprazole (Protonix) 40 mg DAILY ORAL 07/14/17 09:00 08/13/17 08:59 07/14/17 08:21 Piperacillin Sod/ Tazobactam Sod 3.375 gm/Dextrose 55 ml @ 13.75 mls/ hr Q8HR IVPB 07/13/17 19:00 07/20/17 18:59 07/14/17 13:40 Polyethylene Glycol (Miralax) 17 gm DAILYPRN PRN ORAL Constipation 07/13/17 16:30 08/12/17 16:29 Vancomycin HCl (Vanco rx to dose) 1 ea DAILY PRN MISC Per rx protocol 07/13/17 18:15 08/12/17 18:14 Vancomycin HCl/ Dextrose 250 ml @ 166.667 mls/hr Q12HR IVPB 07/13/17 21:00 07/18/17 20:59 07/14/17 20:42 Zolpidem Tartrate (Ambien) 5 mg HSPRN PRN ORAL Insomnia 07/13/17 16:45 07/20/17 16:44 07/14/17 20:34 FELIX COLVIN Jul 14, 2017 21:03
[2017-07-15 04:00] VITALS: BP 109/71
[2017-07-15] MEDS: Norco 10mg/325mg tab ORAL PRN ×3 (04:04→17:34)
[2017-07-15] MEDS: Piperacillin/Tazobactam 3.375 GM in D5W 55 ML IVPB SCH ×3 (04:58→21:31)
[2017-07-15] MEDS: metFORMIN 500mg tab ORAL SCH ×2 (06:03→17:35)
[2017-07-15] MEDS: NovoLOG Insulin Flexpen SUBQ SCH ×4 (06:06→20:42)
[2017-07-15 08:00] VITALS: BP 120/61
[2017-07-15] MEDS: Docusate 100mg cap ORAL SCH ×2 (08:28→17:34)
[2017-07-15] MEDS: Vancomycin 1250mg/D5W 250ml IVPB SCH (08:28)
[2017-07-15] MEDS: Metoprolol Tartrate 12.5mg TAB ORAL SCH ×2 (08:29→20:39)
[2017-07-15] MEDS: Benazepril 10mg tab ORAL SCH (08:31)
[2017-07-15] MEDS: Aspirin EC 81mg tab ORAL SCH (08:32)
[2017-07-15] MEDS: Heparin 5000 units/ml inj SUBQ SCH ×2 (08:35→20:41)
[2017-07-15 12:00] VITALS: BP 119/67
--- NOTE | 2017-07-15 14:21 | General Progress Note ---
Assessment/Plan Problem List: (1) Sacrococcygeal stage IV pressure ulcer Assessment & Plan: with concern for infection (2) DM2 (diabetes mellitus, type 2) ICD Codes: E11.9 - Type 2 diabetes mellitus without complications SNOMED: 82703337 Qualifiers: (3) Diabetic neuropathy ICD Codes: E11.40 - Type 2 diabetes mellitus with diabetic neuropathy, unspecified SNOMED: 86458148, 120749888, 483465232 (4) HTN (hypertension) ICD Codes: I10 - Essential (primary) hypertension SNOMED: 70247339 (5) HLD (hyperlipidemia) ICD Codes: E78.5 - Hyperlipidemia, unspecified SNOMED: 78182289 (6) GERD (gastroesophageal reflux disease) ICD Codes: K21.9 - Gastro-esophageal reflux disease without esophagitis SNOMED: 513265941 (7) Right plantar 4th metatarsal head SDTI pressure ulcer (8) Right ischial tuberosity full thickness scar tissue (9) Left side of abdominal fold erosion with partial thickness skin loss Status: stable Assessment/Plan Wound care consulted, appreciate rec's ID consulted, appreciate rec's Cont vanco and zosyn per ID--change to augmentin + cipro x 7 days on d/c F/u wound culture X-ray coccyx reviewed and no e/o osteo Cont local wound care Cont home meds: MTF, MTP, benazapril, PPI, ASA BRIAN PT/OT Pain mgmt, bowel regimen Supportive care Bale Sewer consult Diabetic diet DC back to SNF tomorrow AM DVT Prophylaxis: SCD, HSQ Code Status: Full Hospital Classification Declaration: Based on this initial evaluation, and depending on the patient's clinical course, I anticipate that this patient will require hospitalization for 1-2 days for sacral decub ulcer and close respiratory/hemodynamic monitoring. Disposition: Once the patient is stable to leave the hospital, I anticipate the patient will likely be discharged to the following environment: back SNF Discussed with patient/family, nursing staff, SW/CM, ID regarding clinical status, treatment course, and disposition planning. D/w ID re plan for abx Time of note may not reflect time of encounter. Subjective Date patient seen: Jul 15, 2017 Time patient seen: 14:21 ROS Limited/Unobtainable: No Constitutional: Reports: no symptoms HEENT: Reports: no symptoms Cardiovascular: Reports: no symptoms Respiratory: Reports: no symptoms Gastrointestinal/Abdominal: Reports: no symptoms Genitourinary: Reports: no symptoms Neurologic/Psychiatric: Reports: no symptoms Endocrine: Reports: no symptoms Hematologic/Lymphatic: Reports: no symptoms Allergies: Coded Allergies: No Known Allergies (Unverified , 07/13/17) All Systems: reviewed and negative except above Subjective No acute o/n events Seen by wound care, pt w/ stage 4 sacral ulcer Seen by ID and started on vanco and zosyn X-ray coccyx showed no e/o osteomyelitis Wound culture showing group B strep and GNR Pt doing well. Denies f/c, n/v, d/c, chest pain, SOB Objective Last 24 Hour Vital Signs Date Time Temp Pulse Resp B/P (MAP) Pulse Ox O2 Delivery O2 Flow Rate FiO2 07/15/17 12:00 98.1 90 18 119/67 94 07/15/17 08:31 109/71 07/15/17 08:29 71 109/71 07/15/17 08:00 97.3 98 20 120/61 99 07/15/17 05:03 97.8 07/15/17 04:00 97.0 71 18 109/71 96 07/14/17 23:49 97.8 84 18 119/66 94 07/14/17 20:26 87 117/64 07/14/17 20:00 97.7 87 18 117/64 91 07/14/17 15:19 97.5 91 21 129/65 96 Room Air Laboratory Tests 07/15/17 07:55: Vancomycin Level Trough 8.5 Height (Feet): 5 Height (Inches): 7.00 Weight (Pounds): 353 Objective General: alert, cooperative, no distress, appears stated age Head: normocephalic, without obvious abnormality, atraumatic Eyes: conjunctivae/corneas clear. PERRL, EOM's intact Throat: lips, mucosa, and tongue normal. MMM Neck: supple, symmetrical, trachea midline, and no JVD Lungs: clear to auscultation bilaterally Heart: regular rate and rhythm, S1, S2 normal, no murmur, click, rub or gallop Abdomen: soft, non-tender, non-distended, bowel sounds normal; no masses or organomegaly Extremities: extremities normal, atraumatic, no cyanosis or edema Pulses: 2+ and symmetric Skin: skin color, texture, turgor normal; +stage 4 sacral ulcer Neurologic: grossly normal, no focal deficits Claudy Tristan M.D. Jul 15, 2017 14:21
[2017-07-15] MEDS ORDERED: CIPROFLOXACIN500 M2 ORAL (14:26)
[2017-07-15] MEDS ORDERED: AUGMENTIN 875-1 EAC1 ORAL (14:26)
--- NOTE | 2017-07-15 15:15 | Infectious Diseases Prog Note ---
Assessment/Plan Assessment/Plan A) 1) gram neg/streptococcus sacral wound infection, possible gram neg uti 2) morbid obesity, hyperlipidemia, neuropathy, dm, htn, schizoaffective dx, insomnia, major depression, gerd, weakness 3) allergies - negative 4) sh-negative, fh-nc, mar noted, notes and records noted 5) d/w RN P) 1) vancomycin and zosyn, check final cultures 2) po abx soon once cultures back 3) check labs 4) wound care per protocol 5) orders entered and noted 6) d/w Dr. Pacheco about abx tx Subjective Constitutional: Denies: fever HEENT: Denies: congestion Respiratory: Denies: shortness of breath Cardiovascular: Denies: chest pain, palpitations Gastrointestinal/Abdominal: Denies: nausea, vomiting, diarrhea Genitourinary: Reports: other - no hammer Neurologic: Denies: headache Psychiatric: Denies: depression Skin: Denies: rash Hematologic: Denies: bleeding Musculoskeletal: Denies: pain Allergies: Coded Allergies: No Known Allergies (Unverified , 07/13/17) Objective Vital Signs Last 24 Hour Vital Signs Date Time Temp Pulse Resp B/P (MAP) Pulse Ox O2 Delivery O2 Flow Rate FiO2 07/15/17 12:00 98.1 90 18 119/67 94 07/15/17 08:31 109/71 07/15/17 08:29 71 109/71 07/15/17 08:00 97.3 98 20 120/61 99 07/15/17 05:03 97.8 07/15/17 04:00 97.0 71 18 109/71 96 07/14/17 23:49 97.8 84 18 119/66 94 07/14/17 20:26 87 117/64 07/14/17 20:00 97.7 87 18 117/64 91 07/14/17 15:19 97.5 91 21 129/65 96 Room Air Height (Feet): 5 Height (Inches): 7.00 Weight (Pounds): 353 General Appearance: no acute distress HEENT: normocephalic, atraumatic, anicteric, mucous membranes moist, EOMI, pharynx normal, supple, no JVD Respiratory/Chest: lungs clear, normal breath sounds, no respiratory distress, no accessory muscle use Cardiovascular: normal rate, regular rhythm, no gallop/murmur, no JVD Abdomen: normal bowel sounds, soft, non tender, no organomegaly, non distended Genitourinary: other - no hammer Extremities: no cyanosis Skin: no rash, other - wound covered Neurologic/Psychiatric: baggagemaster II-XII grossly normal, alert, oriented x 3, responsive Lymphatic: no neck adenopathy Musculoskeletal: no effusion Objective sacral/coccyx x-rayL Impression: No definite acute bony trauma. No definite findings to suggest acute osteomyelitis. Note, however, limited sensitivity of plain radiographs for such. Consider MRI or bone scan for better characterization if there is high clinical suspicion Microbiology Date/Time Source Procedure Growth Status 07/13/17 16:00 Urine,Clean Catch Urine Culture - Preliminary Gram Negative Bacillus 1 Resulted 07/13/17 16:00 Sacral Ulcer Gram Stain - Final Resulted 07/13/17 16:00 Wound Culture - Preliminary Streptococcus Group B Gram Negative Bacillus 2 Gram Negative Bacillus 3 Resulted Microbiology Date/Time Source Procedure Growth Status 07/13/17 16:00 Urine,Clean Catch Urine Culture - Preliminary Gram Negative Bacillus 1 Resulted 07/13/17 16:00 Sacral Ulcer Gram Stain - Final Resulted 07/13/17 16:00 Wound Culture - Preliminary Streptococcus Group B Gram Negative Bacillus 2 Gram Negative Bacillus 3 Resulted Labs Test 07/13/17 16:00 07/13/17 16:20 07/14/17 05:20 07/15/17 07:55 Urine Color Yellow Urine Appearance Turbid Urine pH 6 (4.5-8.0) Urine Specific [place] 1.015 (1.005-1.035) Urine Protein Negative (NEGATIVE) Urine Glucose (UA) Negative (NEGATIVE) Urine Ketones Negative (NEGATIVE) Urine Occult Blood 2+ (NEGATIVE) Urine Nitrite Positive (NEGATIVE) Urine Bilirubin Negative (NEGATIVE) Urine Urobilinogen 1 MG/DL (0.0-1.0) Urine Leukocyte Esterase 1+ (NEGATIVE) Urine RBC 5-10 /HPF (0 - 2) Urine WBC 0-2 /HPF (0 - 2) Urine Squamous Epithelial Cells Few /LPF (NONE/OCC) Urine Bacteria Many /HPF (NONE) White Blood Count 7.9 K/UL (4.8-10.8) 7.4 K/UL (4.8-10.8) Red Blood Count 4.67 M/UL (4.20-5.40) 4.68 M/UL (4.20-5.40) Hemoglobin 13.5 G/DL (12.0-16.0) 13.6 G/DL (12.0-16.0) Hematocrit 42.5 % (37.0-47.0) 43.0 % (37.0-47.0) Mean Corpuscular Volume 91 FL (80-99) 92 FL (80-99) Mean Corpuscular Hemoglobin 28.9 PG (27.0-31.0) 29.0 PG (27.0-31.0) Mean Corpuscular Hemoglobin Concent 31.7 G/DL (32.0-36.0) 31.6 G/DL (32.0-36.0) Red Cell Distribution Width 13.8 % (11.6-14.8) 13.7 % (11.6-14.8) Platelet Count 367 K/UL (150-450) 333 K/UL (150-450) Mean Platelet Volume 6.9 FL (6.5-10.1) 6.7 FL (6.5-10.1) Neutrophils (%) (Auto) 60.1 % (45.0-75.0) 60.0 % (45.0-75.0) Lymphocytes (%) (Auto) 27.9 % (20.0-45.0) 27.8 % (20.0-45.0) Monocytes (%) (Auto) 7.4 % (1.0-10.0) 7.0 % (1.0-10.0) Eosinophils (%) (Auto) 3.2 % (0.0-3.0) 3.0 % (0.0-3.0) Basophils (%) (Auto) 1.4 % (0.0-2.0) 2.3 % (0.0-2.0) Sodium Level 142 MMOL/L (136-145) 138 MMOL/L (136-145) Potassium Level 3.8 MMOL/L (3.5-5.1) 3.9 MMOL/L (3.5-5.1) Chloride Level 104 MMOL/L (98-107) 102 MMOL/L (98-107) Carbon Dioxide Level 31 MMOL/L (21-32) 31 MMOL/L (21-32) Anion Gap 7 mmol/L (5-15) 5 mmol/L (5-15) Blood Urea Nitrogen 12 mg/dL (7-18) 14 mg/dL (7-18) Creatinine 1.1 MG/DL (0.55-1.30) 0.9 MG/DL (0.55-1.30) Estimat Glomerular Filtration Rate > 60 mL/min (>60) > 60 mL/min (>60) Glucose Level 105 MG/DL (74-106) 116 MG/DL (74-106) Hemoglobin A1c 6.8 % (4.3-6.0) Calcium Level 9.2 MG/DL (8.5-10.1) 9.0 MG/DL (8.5-10.1) Magnesium Level 1.7 MG/DL (1.8-2.4) 1.5 MG/DL (1.8-2.4) Total Bilirubin 0.2 MG/DL (0.2-1.0) Aspartate Amino Transf (AST/SGOT) 10 U/L (15-37) Alanine Aminotransferase (ALT/SGPT) 16 U/L (12-78) Alkaline Phosphatase 98 U/L (46-116) Pro-B-Type Natriuretic Peptide 67 pg/mL (0-125) Total Protein 8.5 G/DL (6.4-8.2) Albumin 3.0 G/DL (3.4-5.0) Globulin 5.5 g/dL Albumin/Globulin Ratio 0.5 (1.0-2.7) Thyroid Stimulating Hormone (TSH) 2.232 uiU/mL (0.358-3.740) Vancomycin Level Trough 8.5 ug/mL (5.0-12.0) Laboratory Tests Test 07/15/17 07:55 Vancomycin Level Trough 8.5 ug/mL (5.0-12.0) Current Medications Medications (Trade) Dose Ordered Sig/Gregory Route PRN Reason Start Time Stop Time Status Last Admin Dose Admin Acetaminophen (Tylenol) 650 mg Q4H PRN ORAL Mild Pain/Temp > 100.5 07/13/17 16:30 08/12/17 16:29 Acetaminophen/ Hydrocodone Bitart ([place] 10/325) 1 ea Q4H PRN ORAL For severe Pain 07/13/17 16:45 07/20/17 16:44 07/15/17 10:29 Acetaminophen/ Hydrocodone Bitart ([place] 5/325) 1 tab Q4H PRN ORAL Moderate Pain (Pain Scale 4-6) 07/13/17 16:45 07/20/17 16:44 Aspirin (Ecotrin) 81 mg DAILY ORAL 07/14/17 09:00 08/13/17 08:59 07/15/17 08:32 Atorvastatin Calcium (Lipitor) 10 mg BEDTIME ORAL 07/13/17 21:00 08/12/17 20:59 07/14/17 20:30 Baclofen (Lioresal) 10 mg TIDPRN PRN ORAL muscle spasms 07/13/17 17:00 08/12/17 16:59 Benazepril HCl (Lotensin) 5 mg DAILY ORAL 07/14/17 09:00 08/13/17 08:59 07/15/17 08:31 Dextrose (Dextrose 50%) STAT PRN IV Hypoglycemia 07/13/17 15:45 08/12/17 15:44 Docusate Sodium (Colace) 100 mg TWICE A DAY ORAL 07/13/17 18:00 08/12/17 17:59 07/15/17 08:28 Gabapentin (Neurontin) 600 mg THREE TIMES A DAY ORAL 07/13/17 18:00 08/12/17 17:59 07/15/17 13:33 Heparin Sodium (Porcine) (Heparin 5000 units/ml) 5,000 units EVERY 12 HOURS SUBQ 07/13/17 21:00 08/12/17 20:59 07/15/17 08:35 Insulin Aspart (NovoLOG) BEFORE MEALS AND HS SUBQ 07/13/17 21:00 08/12/17 20:59 07/15/17 06:06 Metformin HCl (Glucophage) 1,000 mg BID@0630,1830 ORAL 07/13/17 18:30 08/12/17 18:29 07/15/17 06:03 Metoprolol Tartrate (Lopressor) 12.5 mg Q12HR ORAL 07/13/17 21:00 08/12/17 20:59 07/15/17 08:29 Pantoprazole (Protonix) 40 mg DAILY ORAL 07/14/17 09:00 08/13/17 08:59 07/15/17 08:31 Piperacillin Sod/ Tazobactam Sod 3.375 gm/Dextrose 55 ml @ 13.75 mls/ hr Q8HR IVPB 07/13/17 19:00 07/20/17 18:59 07/15/17 13:33 Polyethylene Glycol (Miralax) 17 gm DAILYPRN PRN ORAL Constipation 07/13/17 16:30 08/12/17 16:29 Vancomycin HCl (Vanco rx to dose) 1 ea DAILY PRN MISC Per rx protocol 07/13/17 18:15 08/12/17 18:14 Vancomycin HCl 1 gm/Dextrose 275 ml @ 183.333 mls/hr Q8HR@0200,1000,1800 IVPB 07/15/17 18:00 07/20/17 17:59 Zolpidem Tartrate (Ambien) 5 mg HSPRN PRN ORAL Insomnia 07/13/17 16:45 07/20/17 16:44 07/14/17 20:34 FELIX COLVIN Jul 15, 2017 15:15
[2017-07-15 16:00] VITALS: BP 123/62
[2017-07-15] MEDS: Vancomycin 1 GM in D5W 275 ML IVPB SCH (17:34)
[2017-07-15 20:00] VITALS: BP 116/57
[2017-07-15] MEDS: Zolpidem 5mg tab ORAL PRN (20:42)
[2017-07-16] MEDS: Vancomycin 1 GM in D5W 275 ML IVPB SCH ×2 (01:11→10:13)
[2017-07-16] MEDS: Norco 10mg/325mg tab ORAL PRN ×2 (02:04→06:21)
[2017-07-16 04:00] VITALS: BP 127/58
[2017-07-16] MEDS: Piperacillin/Tazobactam 3.375 GM in D5W 55 ML IVPB SCH (06:20)
[2017-07-16] MEDS: metFORMIN 500mg tab ORAL SCH (06:21)
[2017-07-16] MEDS: NovoLOG Insulin Flexpen SUBQ SCH ×2 (06:22→11:26)
[2017-07-16 07:16] LABS: ANION GAP 5 mmol/L (5-15); CALCIUM 8.8 MG/DL (8.5-10.1); CARBON DIOXIDE 30 MMOL/L (21-32); CHLORIDE 105 MMOL/L (98-107); CREATININE 0.7 MG/DL (0.55-1.30); GLOMERULAR FILTRATION RATE > 60 mL/min (>60); POTASSIUM 3.9 MMOL/L (3.5-5.1); SODIUM 140 MMOL/L (136-145)
[2017-07-16 07:22] LABS: EOSINOPHILS % (AUTO) 4.1 % (0.0-3.0); LYMPHOCYTES % (AUTO) 24.1 % (20.0-45.0); MEAN CORPUSCULAR HEMOGLOBIN 29.3 PG (27.0-31.0); MEAN CORPUSCULAR HGB CONC 32.1 G/DL (32.0-36.0); MEAN CORPUSCULAR VOLUME 91 FL (80-99); MEAN PLATELET VOLUME 7.1 FL (6.5-10.1); MONOCYTES % (AUTO) 8.9 % (1.0-10.0); NEUTROPHILS % (AUTO) 61.9 % (45.0-75.0); PLATELET COUNT 292 K/UL (150-450); RED BLOOD COUNT 4.45 M/UL (4.20-5.40); RED CELL DISTRIBUTION WIDTH 13.6 % (11.6-14.8); WHITE BLOOD COUNT 6.1 K/UL (4.8-10.8)
[2017-07-16 08:00] VITALS: BP 133/77
[2017-07-16] MEDS: Aspirin EC 81mg tab ORAL SCH (08:37)
[2017-07-16] MEDS: Benazepril 10mg tab ORAL SCH (08:37)
[2017-07-16 08:38] VITALS: BP 133/77
[2017-07-16] MEDS: Metoprolol Tartrate 12.5mg TAB ORAL SCH (08:38)
[2017-07-16] MEDS: Docusate 100mg cap ORAL SCH (08:38)
[2017-07-16] MEDS: Heparin 5000 units/ml inj SUBQ SCH (08:42)
--- NOTE | 2017-07-16 18:43 | Discharge Summary ---
Discharge Summary Hospital Course Date of Admission Jul 13, 2017 at 15:18 Date of Discharge Jul 16, 2017 at 12:50 Admitting Diagnosis Infection HPI Pau Long is a 66 year old female who was admitted on Jul 13, 2017 at 15:18 for Sacral Wound Hospital Course Wound care consulted ID consulted Cont vanco and zosyn per ID--change to augmentin + cipro x 7 days on d/c Sound culture sent, pending X-ray coccyx reviewed and no e/o osteo Cont local wound care PT/OT Pain mgmt, bowel regimen Supportive care Computer Systems Hardware Analyst consult Diabetic diet DC back to SNF Discharge Condition Upon Discharge: improving Discharge Disposition Patient was discharged to SNF Discharge Diagnoses: (1) DM2 (diabetes mellitus, type 2) (2) Sacral decubitus ulcer (3) Diabetic neuropathy (4) GERD (gastroesophageal reflux disease) (5) HTN (hypertension) (6) HLD (hyperlipidemia) (7) Sacrococcygeal stage IV pressure ulcer Discharge Instructions Discharge Instructions Follow up with: PCP in 1 week Diet: Javon Rock MD Jul 16, 2017 18:43
== END 2017-07-16 12:50 | DRG 592 ==
LOC: 4E 15:18
DX: L89.154 Pressure ulcer of sacral region, stage 4 (principal); E11.40 Type 2 diabetes mellitus with diabetic neuropathy, unspecified; L89.890 Pressure ulcer of other site, unstageable; Z68.42 Body mass index [BMI] 45.0-49.9, adult; E66.01 Morbid (severe) obesity due to excess calories; F25.9 Schizoaffective disorder, unspecified; Z79.4 Long term (current) use of insulin; I10 Essential (primary) hypertension; E78.5 Hyperlipidemia, unspecified; K21.9 Gastro-esophageal reflux disease without esophagitis; G47.00 Insomnia, unspecified; F32.9 Major depressive disorder, single episode, unspecified; L08.89 Other specified local infections of the skin and subcutaneous tissue; B95.5 Unspecified streptococcus as the cause of diseases classified elsewhere
CPT/HCPCS: 36415; 72220; 80048; 80053; 80202; 81003; 82962; 83036; 83735; 83880; 84443; 85025; 87070; 87081; 87086; 87181; 87205; J1815